=== PATIENT | male | born 1950 | race Caucasian/White ===

== ENCOUNTER → 2017-07-10 15:00 | Outpatient (CLI) | payer MEDICARE | END | disposition home or self-care (01) | LOC: D.RAD 15:00 | DX: J45.909 Unspecified asthma, uncomplicated (principal) ==

== ENCOUNTER 2017-11-25 15:13 | Emergency (ER) | payer MEDICARE ==
[2017-11-25 16:09] LABS: BASOPHILS 0.2 % (0-2); EOSINOPHILS 3.1 % (0-7); HEMATOCRIT 45.8 % (42.0-54.0); HEMOGLOBIN 15.8 g/dL (13.5-17.5); IMMATURE GRANULOCYTES 0.3 % (0-5); LYMPHOCYTES 23.1 % (15-50); MCH 32.4 pg (26.0-34.0); MCHC 34.5 g/dL (31.0-37.0); MCV 93.9 fL (80.0-100.0); MEAN PLATELET VOLUME 11.9 fL (7.4-10.4); MONOCYTES 12.9 % (2-11); NEUTROPHILS 60.4 % (40-80); PLATELET COUNT 281 10x3/uL (130-400); RBC 4.88 10x6/uL (4.20-6.10); RDW 13.1 % (11.5-14.5); WBC 11.4 10x3/uL (4.8-10.8)
[2017-11-25 17:38] LABS: ALBUMIN 3.8 g/dL (3.4-5.0); ALKALINE PHOSPHATASE 58 U/L (46-116); ALT (SGPT) 42 U/L (10-68); BILIRUBIN - TOTAL 0.47 mg/dL (0.2-1.3); CALC OSMOLALITY 282 mosm/kg (275-300); CALCIUM 8.8 mg/dL (8.5-10.1); CARBON DIOXIDE 27.2 mmol/L (21.0-32.0); CHLORIDE - SERUM 103 mmol/L (98-107); CREATININE - SERUM 0.9 mg/dL (0.6-1.3); GLUCOSE 88 mg/dL (74-106); POTASSIUM - SERUM 3.5 mmol/L (3.5-5.1); SODIUM 142 mmol/L (136-145); UREA NITROGEN 14 mg/dL (7-18); eGFR NON AFRICAN AMERICAN 90 mL/min (90-120)
[2017-11-25 17:49] LABS: CREATINE KINASE 180 UL (21-232)
[2017-11-25 17:50] LABS: TROPONIN-I < 0.017 ng/mL (0.000-0.060)
== END 2017-11-25 18:17 | disposition home or self-care (01) ==
LOC: D.ER 15:13
PROVIDERS: Family Medicine
DX: R07.89 Other chest pain (principal); I10 Essential (primary) hypertension

== ENCOUNTER → 2019-12-23 11:06 | Outpatient (CLI) | payer MEDICARE | END | disposition home or self-care (01) | LOC: D.HCCECHO 11:06 | PROVIDERS: ATTEND Internal Medicine Cardiovascular Disease | DX: R06.00 Dyspnea, unspecified (principal); R07.9 Chest pain, unspecified ==

== ENCOUNTER → 2020-01-11 08:11 | Outpatient (CLI) | payer MEDICARE | END | disposition home or self-care (01) | LOC: D.HCCARDIO 08:11 | PROVIDERS: ATTEND Internal Medicine Cardiovascular Disease | DX: R07.9 Chest pain, unspecified (principal) ==

== ENCOUNTER 2020-02-01 06:03 | Outpatient (CLI) | payer MEDICARE ==
[~2020-02-01] VITALS: Ht 177.8 cm; Wt 75.8 kg
--- NOTE | ~2020-02-01 | HEMODYNAMI ---
PATIENT:MANI CAIN MEDICAL RECORD: [id number] : 52 LOCATION:[facility] ADMISSION DATE: 02/01/20 Generatedon:02/01/20209:07 Patient name: MANI CAIN Patient #: [id number] SSN: DO B: 1950 Date of study: 02/01/2020 Page: Of Hemodynamic Procedure Report Patient Data Patient Demographics Procedure consent was obtained First Name: MANI Gender: Male Last Name: PAYTON : 1950 Middle Initial: D Age: 69 year(s) Patient #: [id number] Race: Unknown Additional ID: [id number] Contact details [address]: [address] [place] [address] State: [place] City: [place] Zip code: [address] Past Medical History Performed procedures and imaging results Date Procedure Procedure Results Comments Stress testing Positive->Intermediate with SPECT MPI risk Allergies Allergen Reaction Date Comments Reported Other allergy 02/01/2020 [facility] Admission Admission Data Admission Date: 02/01/2020 Admission Time: 6:03 Height (in.): 72 BSA: 1.98 (m2) Height (cm.): 182.88 BMI: 22.72 (kg/m2) Weight (lbs.): 167.55 Weight (kg.): 76 Lab Results Lab Result Date: 02/01/2020 Lab Result Time: 0:00 Biochemistry Name Units Result Min Max BUN mg/dl 14 --(--*-)-- 7 18 Creatinine mg/dl 1 --(--*-)-- 0.6 1.3 eGFR ml/min 79.17953 *-(----)-- 90 120 NONAFRICAN CBC Name Units Result Min Max Hematocrit % 49.8 --(--*-)-- 42 54 Hemoglobin g/dl 16.9 --(---*)-- 13.5 17.5 Procedure Procedure Types Cath Procedure Diagnostic Procedure LHC [facility] w/Coronaries Sedation Charges Moderate Sedation up to 45 minutes PCI Procedure Coronary Stent Coronary Stent Initial Hemochron ACT Test Procedure Description Procedure Date Procedure Date: 02/01/2020 Procedure Start Time: 8:21 Procedure End Time: 9:04 Procedure Staff Name Function Bill Cordova MD Performing Physician Michelle Norwood RT Monitor Sarika Thompson RT Scrub Jennifer Castorena RN Nurse Procedure Data Cath Procedure Fluoroscopy Diagnostic fluoroscopy Total fluoroscopy Time: 9.3 time: 9.3 min min Diagnostic fluoroscopy Total fluoroscopy dose: dose: 1016 mGy 1016 mGy Contrast Material Contrast Material Type Amount (ml) Isovue 300 137 Entry Location Entry Primary Successful Side Size Upsize Upsize Entry Closure Succes sful Closure Location (Fr) 1 (Fr) 2 (Fr) Remarks Device Remarks Femoral Right 5 Fr 6 Fr Exoseal artery Short Estimated blood loss: 10 ml Diagnostic catheters Device Type Used For End Catheter Placement MULTIPACK JL 4.0 5Fr Procedure catheter MULTIPACK 3DRC 5Fr Procedure catheter MULTIPACK Pigtail 5 Fr Procedure catheter Procedure Complications No complications Procedure Medications Medication Administration Route Dosage 0.9% NaCl I.V. 100 ml/hr Oxygen etCO2 Nasal cannula 2 l/min Lidocaine 2% added to field 20 Heparin Flush Bag added to field 2 bags (1000units/500ml NS) Versed I.V. 2 mg Fentanyl I.V. 50 mcg Versed I.V. 2 mg Fentanyl I.V. 50 mcg Nitroglycerin IC/IA I.C. 100 mcg Heparin Bolus I.V. 7500 units Versed I.V. 2 mg Nitroglycerin IC/IA I.C. 100 mcg Hemodynamics Rest BSA: 1.98 (m2) HGB: 16.9 (g/dl) O2 Consumption: Estimated: 240.25 (ml/min) O2 Co nsumption indexed: Estimated:121.34 (ml/min/m) Heart Rate: 84 (bpm) Pressure Samples Time Site Value (mmHg) Purpose Heart Use Rate(bpm) 8:30 LV 125/-7,6 Snapshot 78 8:31 AO 130/55(86) Pullback 80 8:31 LV 126/-9,23 Pullback 80 Gradients Valve Time Site 1 Site 2 Mean SEP/DFP Peak To Heart Use (mmHg) (sec/min) Peak Rate (mmHg) (bpm) Aortic 8:31 LV AO 0 18 0 80 126/-9,23 130/55(86) Calculations Valve P-P Mean Valve Index Valve Source Name Gradient Area Flow (cm2) Aortic 0 0 0 0 Snapshots Pre Cath Intra NCS Post Cath Vital Signs Time Heart Resp SPO2 etCO2 NIBP (mmHg) Rhythm Pain Sedation Rate (ipm) (%) (mmHg) Status Level (bpm) 8:03:21 81 15 99 19.5 164/88(126) NSR 0 (11) 10(A) , No pain 8:07:38 83 22 98 12.7 131/77(111) NSR 0 (11) 10(A) , No pain 8:11:52 76 29 97 18.8 131/75(98) NSR 0 (11) 10(A) , No pain 8:16:06 76 18 98 24.8 122/77(101) NSR 0 (11) 10(A) , No pain 8:20:19 78 11 98 13.5 119/71(95) NSR 0 (11) 10(A) , No pain 8:24:27 71 14 97 10.5 125/71(100) NSR 0 (11) 10(A) , No pain 8:28:41 79 12 98 14 124/76(100) NSR 0 (11) 9(A) , No pain 8:32:51 76 16 97 11.3 111/70(97) NSR 0 (11) 9(A) , No pain 8:36:59 75 16 98 20 119/73(97) NSR 0 (11) 9(A) , No pain 8:41:11 77 16 99 30.1 122/59(83) NSR 0 (11) 9(A) , No pain 8:45:27 76 14 97 30.8 111/59(76) NSR 0 (11) 10(A) , No pain 8:49:37 76 16 99 28.6 113/68(94) NSR 0 (11) 10(A) , No pain 8:53:47 73 19 100 10.5 108/69(94) NSR 0 (11) 9(A) , No pain 8:57:57 75 14 100 25.5 97/63(82) NSR 0 (11) 10(A) , No pain 9:02:00 78 12 99 33.1 112/71(94) NSR 0 (11) 10(A) , No pain Medications Time Medication Route Dose Verified Delivered Reason Notes Effectiveness by by 8:02:16 0.9% NaCl I.V. 100 Bill Jennifer used for ml/hr Art Castorena special procedure technologist 8:02:22 Oxygen etCO2 2 Bill Jennifer used for Nasal l/min Art Castorena procedure cannula RN 8:02:27 Lidocaine 2% added 20ml Bill Bill for local to vial Art Cordova MD anesthetic field 8:02:31 Heparin Flush added 2 Bill Bill used for Bag to bags Art Cordova MD procedure (1000units/500ml field NS) 8:17:26 Versed I.V. 2 mg Bill Jennifer for sedation Art Castorena RN 8:17:52 Fentanyl I.V. 50 Bill Jennifer for sedation mcg Art Castorena RN 8:25:00 Versed I.V. 2 mg Bill Jennifer for sedation Art Castorena RN 8:25:06 Fentanyl I.V. 50 Bill Jennifer for sedation mcg Art Castorena RN 8:36:12 Heparin Bolus I.V. 7500 Bill Jennifer for verifi ed units Art Castorena anticoagulation with Dr. YOHANNES Cordova 8:41:41 Nitroglycerin I.C. 100 Bill Bill for IC/IA mcg Art Cordova MD vasodilation 8:46:19 Versed I.V. 2 mg Bill Jennifer for sedation Art Castorena RN 8:57:08 Nitroglycerin I.C. 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 7:37:30 Time tracking: Regular hours (M-F 7:00 - 5:00) 7:37:37 Plan of Care:Hemodynamics will remain stable., Cardiac rhythm will remain stable., Comfort level will be maintained., Respiratory function will remain adequate., Patient/ family verbilizes understanding of procedure., Procedure tolerated without complication., Recovers from procedure without complications.. 7:45:19 H&P Date Dictated: 01/20/2020 Within 30 days and on chart., H&P Addendum completed by physician on day of procedure. (MUST COMPLETE FOR ALL OUTPATIENTS). 7:45:34 Patient allergic to Other allergyLEVAQUIN 7:45:57 Patient Weight : 167.55 lbs 7:46:36 Patient Height : 72 inches 7:47:00 Sarika MEYER(R) (CV) sent for patient. Start room use. 7:50:30 Stress Test: yes; abnormal ANTERIOR AND LATERAL 7:55:35 Patient received from Pre/Post Procedure Room to CCL 1 Alert and oriented. Tansferred to table in Supine position. 7:55:36 Warm blankets applied, and karlo hugger turned on for patient comfort. 7:55:36 Correct patient and procedure confirmed by team. 7:55:37 ECG and BP/O2 sat monitors applied to patient. 8:02:08 Vital chart was started 8:02:16 0.9% NaCl 100 ml/hr I.V. was administered by Jennifer Castorena RN; used for procedure; Verbal order read back and verified. 8:02:22 Oxygen 2 l/min etCO2 Nasal cannula was administered by Jennifer Castorena RN; used for procedure; Verbal order read back and verified. 8:02:27 Lidocaine 2% 20ml vial added to field was administered by Bill Cordova MD; for local anesthetic; Verbal order read back and verified. 8:02:31 Heparin Flush Bag (1000units/500ml NS) 2 bags added to field was administered by Bill Cordova MD; used for procedure; Verbal order read back and verified. 8:03:49 Baseline sample Acquired. 8:03:52 Rhythm: sinus rhythm 8:03:54 Full Disclosure recording started 8:03:55 Pre-procedure instructions explained to patient. 8:03:55 Pre-op teaching completed and patient verbalized understanding. 8:03:57 Family in waiting room. 8:04:01 Patient NPO since Breakfast. 8:09:51 Is the patient allergic to Iodine/contrast media? No. 8:10:02 Is patient on blood thinner?No 8:10:03 Patient diabetic? No. 8:10:57 Previous problem with sedation/anesthesia? No ? 8:10:59 Snore? Yes 8:11:00 Sleep apnea? No 8:11:01 Deviated septum? No 8:11:02 Opens mouth fully? Yes 8:11:03 Sticks out tongue? Yes 8:11:09 Airway obstruction? Yes ASTHMA 8:11:11 Dentures? No ? 8:11:14 Pre procedure: right dorsailis pedis pulse 1+ Palpable, but thready & weak; easily obliterated 8:11:16 Modified Humza's test Ulnar > 7 seconds. 8:11:23 IV patent on arrival in left hand with 0.9% NaCl at O. 8:12:15 Lab Result : BUN 14 mg/dl 8:12:15 Lab Result : Creatinine 1 mg/dl 8:12:15 Lab Result : eGFR NONAFRICAN 79.12555 ml/min 8:12:15 Lab Result : Hemoglobin 16.9 g/dl 8:12:15 Lab Result : Hematocrit 49.8 % 8:12:18 Lab results completed and on chart. 8:12:21 Right groin area was prepped with chlora-prep and draped in sterile fashion 8:12:21 Alarms reviewed by R. N. 8:12:22 Sharps counted by scrub and verified by R.N. 8:12:30 FAILED ALLENS TEST 8:12:32 Use device set Femoral Dx 8:12:33 ACIST Syringe (03625) opened to sterile field. 8:12:34 Bag Decanter (2002S) opened to sterile field. 8:12:36 ACIST Hand Control (14102) opened to sterile field. 8:12:36 ACIST Manifold (26485) opened to sterile field. 8:12:37 Tegaderm 4 x 4 (1626W) opened to sterile field. 8:12:38 Medline Cath Pack ([id number]) opened to sterile field. 8:12:39 DIAGNOSTIC Multipack 5Fr catheter set (MR3456) opened to sterile field. 8:12:40 SHEATH 5FR Graham (FAS318) opened to sterile field. 8:12:40 EMERALD Guide Wire (322-703) opened to sterile field. 8:16:08 --------ALL STOP TIME OUT------ 8:16:09 Final Timeout: patient, procedure, and site verified with staff and physician. All members of the team are in agreement. 8:16:10 Right groin site verified by team. 8:16:13 Fire Safety Assessment: A--An alcohol-based skin anteseptic being used preoperatively., C--Open oxygen or nitrous oxide is being used., D--An ESU, laser, or fiber-optic light is being used. 8:16:15 Physical assessment completed. ASA score P 2 - A patient with mild systemic disease as per Bill Cordova MD. 8:16:20 2) 60-89 Mildly reduced kidney function, and other findings (as for stage 1) point to kidney disease. 8:16:25 Maximum allowable contrast dose (3.7 X eGFR X 0.75)219 ml. 8:16:28 Sedation plan: IV Moderate Sedation Medication:Versed, Fentanyl 8:16:52 Zero performed for pressure channel P1 8:17:26 Versed 2 mg I.V. was administered by Jennifer Castorena RN; for sedation; Verbal order read back and verified. 8:17:52 Fentanyl 50 mcg I.V. was administered by Jennifer Castorena RN; for sedation; Verbal order read back and verified. 8:21:21 Procedure started. 8:21:59 Local anesthetic to right femoral artery with Lidocaine 2% by Bill Cordova MD.INITIAL ACCESS ONLY 8:23:16 A 5 Fr sheath was inserted into the Right Femoral artery 8:23:27 A MULTIPACK JL 4.0 5Fr catheter was advanced over the wire and used for Procedure. 8:25:00 Versed 2 mg I.V. was administered by Jennifer Castorena RN; for sedation; Verbal order read back and verified. 8:25:06 Fentanyl 50 mcg I.V. was administered by Jennifer Castorena RN; for sedation; Verbal order read back and verified. 8:25:41 LCA angiography performed. 8:26:04 Catheter exchanged over wire. 8:27:05 A MULTIPACK 3DRC 5Fr catheter was advanced over the wire and used for Procedure. 8:28:57 RCA angiography performed. 8:28:58 Catheter exchanged over wire. 8:29:00 ACCDominant side:Left 8:29:28 A MULTIPACK Pigtail 5 Fr catheter was advanced over the wire and used for Procedure. 8:29:47 LV gram done using BLANCAS 8:29:51 Injector settings: Ml/sec: 10, Volume: 20, 8:30:40 LV hemodynamics recorded. 8:31:03 EF : 60 % 8:31:43 Proceeding to intervention. 8:31:50 Pre PCI Site: [place] Diag1 has 90% stenosis. 8:32:13 SHEATH 6FR Graham (GMQ875) opened to sterile field. 8:32:14 GUIDE 6FR XBLAD 3.5 catheter ([id number]) opened to sterile field. 8:32:14 TUBING High Pressure Extension Tubing (Art) ([id number]) opened to sterile field. 8:32:15 BMW 300cm Straight [place] 2 wire ([id number]) opened to sterile field. 8:32:15 INFLATOR Merit BasixCompak (JQ5077) opened to sterile field. 8:33:09 Sheath upsized to a 6 Fr Short. 8:34:12 6 Fr XBLAD 3.5 guide catheter was inserted over the wire 8:36:12 Heparin Bolus 7500 units I.V. was administered by Jennifer Castorena RN; for anticoagulation; verified with Dr. Cordova Verbal order read back and verified. 8:38:54 BMW 300 wire advanced. 8:40:32 Wire advanced across lesion. 8:41:41 Nitroglycerin IC/IA 100 mcg I.C. was administered by Bill Cordova MD; for vasodilation; Verbal order read back and verified. 8:46:19 Versed 2 mg I.V. was administered by Jennifer Castorena RN; for sedation; Verbal order read back and verified. 8:48:19 The JOLYNN OTW 2.25 x 12 stent ([id number]) was advanced then removed because of failure to cross lesion 8:51:46 Inflate balloon Inflation number: 1 A EMERGE OTW 2.0 x 12 balloon ([id number]) was prepped and advanced across the 1st Diag , then inflated to 11 NETTA for 0:00 (min:sec) . 8:53:56 Balloon removed over the wire. 8:56:14 Place stent Inflation Number: 2 A JOLYNN OTW 2.25 x 12 stent ([id number]) was prepped and advanced across the 1st Diag . The stent was deployed at 11 NETTA for 0:00 (min:sec) . 8:56:19 Stent catheter was removed intact over wire. 8:57:08 Nitroglycerin IC/IA 100 mcg I.C. was administered by Jennifer Castorena RN; for vasodilation; Verbal order read back and verified. 8:57:39 Wire removed. 8:57:40 Guide catheter removed. 8:57:53 EXOSEAL 6Fr (EX600) opened to sterile field. 8:59:36 Sheath removed intact; hemostasis achieved with Exoseal to the Right Femoral artery. 9:00:03 Procedure ended.(Physican Out) 9:00:17 Fluoroscopy time 09.30 minutes. 9:00:22 Fluoroscopy dose: 1016 mGy 9:00:22 Flurop Dose total: 1016 9:00:28 Dose Area Product 88876 mGy/cm. 9:00:31 Contrast amount:Isovue 300 137ml. 9:00:34 Maximum allowable dose exceeded? No. 9:00:35 Sharps counted by scrub and verified by R.N. 9:00:38 Post-op/insertion site Right Femoral artery dressed using a 4 x 4 and Tegaderm. 9:00:40 Post-procedure physical assessment completed. ASA score P 2 - A patient with mild systemic disease as per Bill Cordova MD. 9:00:43 Post procedure rhythm: sinus rhythm 9:02:40 ACT drawn and resulted at >400- out of range seconds. (normal therapeutic range 180-240 seconds). 9:03:17 Estimated blood loss: 10 ml 9:03:20 Post procedure instruction explained to patient.Patient verbalizes understanding. 9:03:20 Patient needs reinforcement of post procedure teaching. 9:03:57 Procedure type changed to Cath procedure, Diagnostic procedure, LHC, [facility] w/Coronaries, Sedation Charges, Moderate Sedation up to 45 minutes, PCI procedure, Coronary Stent, Coronary Stent Initial, Hemochron ACT Test 9:04:29 Procedure and supply charges have been captured, reviewed, submitted and are correct. 9:04:31 Procedure Complication : No complications 9:04:34 Vital chart was stopped 9:04:35 [facility] Findings: MVD- PCI performed (see procedure note) 9:04:36 Operative report dictated upon procedure completion. 9:04:37 See physician's report for complete and final results. 9:04:38 Report given to Pre/Post Procedure Room. 9:04:41 Patient transfered to Pre/Post Procedure Room with Bed. 9:04:44 Procedure ended. 9:04:44 Full Disclosure recording stopped 9:04:50 End room use (Document Last) 9:06:24 End room use (Document Last) 9:07:03 End room use (Document Last) Intervention Summary Intervention Notes Time ActionType Lesion and Equipment Action# Pressure Duration Attributes Used 8:48:19 Discard 1st Diag JOLYNN OTW 2.25 Stent x 12 stent ([id number]) 8:51:46 Inflate 1st Diag EMERGE OTW 1 11 00:00 balloon 2.0 x 12 balloon ([id number]) 8:56:14 Place stent 1st Diag JOLYNN OTW 2.25 2 11 00:00 x 12 stent ([id number]) Device Usage Item Name Manufacture Quantity Catalog Number Hospital Part Current Min imal Lot# / Charge Number Stock Stock Serial# Code ACIST Syringe Acist 1 39315 877360 313600 835760 20 (99348) Medical Systems Inc Bag Decanter Microtek 1 2001S 292258 07664 576738 5 (2001S) Medical Inc. ACIST Hand Acist 1 76250 713744 705975 037083 5 Control Medical (03857) Systems Inc ACIST Acist 1 24245 489592 800655 070497 5 Manifold Medical (24692) Systems Inc Tegaderm 4 x 3M 1 1626W 657832 219024 315073 5 4 (1626W) Medline Cath Medline 1 [id number] 476211 23207 887622 5 Pack ([id number]) DIAGNOSTIC Cardinal 1 TB6747 223546 85026 719604 30 Multipack 5Fr Health catheter set (EX5945) SHEATH 5FR Terumo 1 XRS808 725793 844877 687650 5 Graham (VWJ954) EMERALD Guide Cardinal 1 502-455 086530 301428 376716 5 Wire Health (502-455) MULTIPACK JL Cardinal 1 601407 5 4.0 5Fr Health catheter MULTIPACK Cardinal 1 704985 5 3DRC 5Fr Health catheter MULTIPACK Cardinal 1 712643 5 Pigtail 5 Fr Health catheter SHEATH 6FR Terumo 1 XPP098 313618 625698 045328 40 Graham (FQF713) GUIDE 6FR Cardinal 1 [id number] 251650 359998 587123 10 XBLAD 3.5 Health catheter (30370173) TUBING High Merit 1 [id number] 980182 21477 429653 10 Pressure Medical Extension Tubing (Cordova) (HA6046G) BMW 300cm Long 1 6212087 633436 355610 522713 5 Straight Vascular [place] 2 wire (0991003) INFLATOR Merit 1 GT1222 854036 329487 192741 15 [facility] Medical BasixCompak (MS7627) JOLYNN OTW 2.25 Medtronic 1 [id number] 328969 20025 959305 5 [id number] x 12 stent ([id number]) EMERGE OTW [place] 1 [id number] 184959 601386 128666 5 [id number] 2.0 x 12 Scientific balloon ([id number]) EXOSEAL 6Fr Cardinal 1 EX600 116468 136524 027833 10 (EX600) Health Signature Audit [place] Stage Time Signature Unsigned Intra-Procedure 02/01/2020 Michelle Norwood 9:06:24 AM RT(R) Intra-Procedure 02/01/2020 Jennifer Castorena 9:07:03 AM RN Intra-Procedure 02/01/2020 Bill Cordova MD 9:07:35 AM [facility] [address] [place] [address]
[2020-02-01] MEDS ORDERED: ZETIA10 MG PO (06:26)
[2020-02-01] MEDS ORDERED: TRIAMTERENE-HC1 EAC3 PO (06:27)
[2020-02-01] MEDS ORDERED: PROAIR HFA8.5 G1 (06:27)
[2020-02-01] MEDS ORDERED: NEXIUM20 MG PO (06:27)
[2020-02-01] MEDS ORDERED: COZAAR25 MG PO (06:27)
[2020-02-01] MEDS ORDERED: MELATONIN10 M1 PO (06:28)
[2020-02-01] MEDS ORDERED: NICORETTE2 MG PO (06:29)
[2020-02-01] MEDS ORDERED: CO Q-10200 MG PO (06:29)
[2020-02-01] MEDS ORDERED: GLUCOSAMINE HC500 MG PO (06:30)
[2020-02-01] MEDS ORDERED: MAGNESIUM OXID250 MG PO (06:30)
[2020-02-01] MEDS ORDERED: VITAMIN B-12500 MCG PO (06:30)
[2020-02-01] MEDS ORDERED: VITAMIN E100 UNIT PO (06:31)
[2020-02-01] MEDS ORDERED: ZINC GLUCONATE50 MG PO (06:31)
[2020-02-01] MEDS ORDERED: KRILL OIL 1,001 EAC1 PO (06:31)
[2020-02-01] MEDS ORDERED: SAW PALMETTO450 MG PO (06:32)
[2020-02-01 06:48] VITALS: BP 181/96; Ht 177.8 cm; Wt 75.8 kg
[2020-02-01 07:36] LABS: ALT (SGPT) 42 U/L (10-68); CALC OSMOLALITY 266 mosm/kg (275-300); CALCIUM 9.1 mg/dL (8.5-10.1); CARBON DIOXIDE 26.4 mmol/L (21.0-32.0); CHLORIDE - SERUM 95 mmol/L (98-107); CHOL - HDL RATIO 4.2 ratio (2.3-4.9); CHOLESTEROL, TOTAL 206 mg/dL (0-200); GLUCOSE 105 mg/dL (74-106); HDL CHOLESTEROL 49 mg/dL (32-96); LDL CHOLESTEROL 137 mg/dL (0-100); LDL-HDL RATIO 2.8 ratio (1.5-3.5); POTASSIUM - SERUM 3.2 mmol/L (3.5-5.1); SODIUM 133 mmol/L (136-145); TRIGLYCERIDE 103 mg/dL (30-200); UREA NITROGEN 14 mg/dL (7-18); eGFR NON AFRICAN AMERICAN 79 mL/min (90-120)
[2020-02-01 08:09] LABS: BASOPHILS 0.2 % (0-2); EOSINOPHILS 0.8 % (0-7); HEMATOCRIT 49.8 % (42.0-54.0); HEMOGLOBIN 16.9 g/dL (13.5-17.5); IMMATURE GRANULOCYTES 0.2 % (0-5); LYMPHOCYTES 17.6 % (15-50); MCH 31.6 pg (26.0-34.0); MCHC 33.9 g/dL (31.0-37.0); MCV 93.1 fL (80.0-100.0); MEAN PLATELET VOLUME 10.6 fL (7.4-10.4); MONOCYTES 13.2 % (2-11); PLATELET COUNT 233 10x3/uL (130-400); RBC 5.35 10x6/uL (4.20-6.10); RDW 13.3 % (11.5-14.5); WBC 8.8 10x3/uL (4.8-10.8)
[2020-02-01] MEDS ORDERED: BAYER CHEWABLE81 MG PO (09:15)
[2020-02-01] MEDS ORDERED: PLAVIX75 MG PO (09:15)
--- NOTE | 2020-02-01 09:15 | NUR ---
PT RECEIVED BACK TO ROOM VIA STRETCHER FROM [facility]PER FOR RECOVERY. PT AWAKE BUT DROWSY, DENIES PAIN OR DISCOMFORT. IV PATENT INFUSING VIA ORDERS TO R ARM. PT PLACED ON CARDIAC MONITORS AND O2 VIA NC AT 2L. R GROIN SOFT, DRESSING CDI NO S/S HEMATOMA OR BLEEDING NOTED. LEG PINK AND WARM, PEDAL PULSES PALPABLE. CALL LIGHT IN REACH, AT BEDSIDE.
--- NOTE | 2020-02-01 09:47 | NUR ---
PT RESTING COMFORTABLY. VSS. R GROIN SOFT, DRESSING REMAINS CDI NO S/S HEMATOMA OR BLEEDING. PEDAL PULSES PALPALBE, LEG PINK AND WARM. CALL LIGHT IN REACH, AT BS. PT TOLERATED PUDDING AND PO FLUIDS W/O NAUSEA.
--- NOTE | 2020-02-01 10:30 | NUR ---
PT RESTING W EYES CLOSED, DENIES PAIN OR DISCOMFORT. VSS. R GROIN SOFT, DRESSING CDI NO S/S HEMATOMA NOTED. CALL LIGHT IN REACH.
--- NOTE | 2020-02-01 11:02 | NUR ---
DR RAMAN AT , NO NEW ORDERS RECEIVED. PROCEDURE RESULTS AND PLAN OF CARE DISCUSSED W PT AND . R GROIN SOFT, DRESSING CDI NO S/S HEMATOMA NOTED. CALL LIGHT IN REACH
--- NOTE | 2020-02-01 12:00 | NUR ---
R GROIN SOFT, DRESSING CDI NO S/S HEMATOMA OR BLEEDING. HOB ELEVATED, SANDWICH AND DRINK SERVED. VSS. CALL LIGHT IN REACH, PT DENIES PAIN OR OTHER NEEDS AT THIS TIME.
--- NOTE | 2020-02-01 12:59 | NUR ---
DISCHARGE INSTRUCTIONS REVIEWED W PT AND , BOTH VERBALIZED UNDERSTANDING. IV REMOVED W CATH INTACT, MONITORS REMOVED. GROIN SOFT, DRESSING REMAINS CDI NO S/S HEMATOMA OR BLEEDING. PT UP TO DRESS FOR DISCHARGE
--- NOTE | 2020-02-01 13:10 | NUR ---
1300 PT AMBULATED TO BR, VOIDING W/O DIFFICULITY. PT THEN DISCHARGED VIA WC TO WAITING IN PRIVATE VEHICLE. PT HAD ALL BELONGINGS
== END 2020-02-01 13:10 | disposition home or self-care (01) ==
LOC: D.CATH 06:03
PROVIDERS: ATTEND Internal Medicine Cardiovascular Disease
DX: I25.119 Atherosclerotic heart disease of native coronary artery with unspecified angina pectoris (principal); R94.30 Abnormal result of cardiovascular function study, unspecified; R07.9 Chest pain, unspecified
CPT/HCPCS: 93458; C9600

== ENCOUNTER 2020-06-17 14:01 | Observation (INO) | payer MEDICARE ==
[~2020-06-17] VITALS: Ht 177.8 cm; Wt 78.2 kg
[~2020-06-17 14:01] MED LIST: BAYER CHEWABLE81 MG PO; CO Q-10200 MG PO; COZAAR25 MG PO; GLUCOSAMINE HC500 MG PO; KRILL OIL 1,001 EAC1 PO; MAGNESIUM OXID250 MG PO; MELATONIN10 M1 PO; NEXIUM20 MG PO; NICORETTE2 MG PO; PLAVIX75 MG PO; PROAIR HFA8.5 G1 INH; SAW PALMETTO450 MG PO; TRIAMTERENE-HC1 EAC3 PO; VITAMIN B-12500 MCG PO; VITAMIN E100 UNIT PO; ZETIA10 MG PO; ZINC GLUCONATE50 MG PO
[2020-06-17 14:04] VITALS: Ht 177.8 cm; Wt 78.2 kg
[2020-06-17 14:39] LABS: BASOPHILS 0.2 % (0-2); HEMOGLOBIN 15.1 g/dL (13.5-17.5); IMMATURE GRANULOCYTES 0.1 % (0-5); LYMPHOCYTES 10.2 % (15-50); MCH 31.3 pg (26.0-34.0); MCHC 34.3 g/dL (31.0-37.0); MCV 91.1 fL (80.0-100.0); MEAN PLATELET VOLUME 9.9 fL (7.4-10.4); MONOCYTES 11.2 % (2-11); NEUTROPHILS 77.3 % (40-80); PLATELET COUNT 218 10x3/uL (130-400); RBC 4.83 10x6/uL (4.20-6.10); RDW 13.4 % (11.5-14.5); WBC 10.3 10x3/uL (4.8-10.8)
[2020-06-17 14:50] LABS: APTT 28.2 SECONDS (22.8-39.4); INR 1.01 (0.85-1.17); PROTIME 13.2 SECONDS (11.6-15.0)
[2020-06-17 14:52] LABS: CALC OSMOLALITY 271 mosm/kg (275-300); CALCIUM 8.9 mg/dL (8.5-10.1); CARBON DIOXIDE 26.5 mmol/L (21.0-32.0); CHLORIDE - SERUM 99 mmol/L (98-107); CREATININE - SERUM 0.9 mg/dL (0.6-1.3); GLUCOSE 106 mg/dL (74-106); POTASSIUM - SERUM 3.4 mmol/L (3.5-5.1); SODIUM 136 mmol/L (136-145); UREA NITROGEN 13 mg/dL (7-18); eGFR NON AFRICAN AMERICAN 89 mL/min (90-120)
[2020-06-17 15:09] LABS: ALBUMIN 3.8 g/dL (3.4-5.0); ALKALINE PHOSPHATASE 63 U/L (30-120); ALT (SGPT) 31 U/L (10-68); BILIRUBIN - TOTAL 0.45 mg/dL (0.2-1.3); CKMB 1.5 U/L (0.0-3.6); CREATINE KINASE 130 UL (21-232); PROTEIN - SERUM 7.5 g/dL (6.4-8.2); TROPONIN-I < 0.017 ng/mL (0.000-0.060)
[2020-06-17 18:17] LABS: PLT FUNCT.(P2Y12) PLAVIX 125 PRU (194-418)
[2020-06-17 22:14] LABS: CKMB 0.9 U/L (0.0-3.6); CREATINE KINASE 105 UL (21-232)
[2020-06-17 22:15] LABS: TROPONIN-I < 0.017 ng/mL (0.000-0.060)
[2020-06-18 02:28] VITALS: BP 153/83
[2020-06-18 04:16] LABS: BASOPHILS 0.3 % (0-2); EOSINOPHILS 4.8 % (0-7); HEMATOCRIT 41.6 % (42.0-54.0); HEMOGLOBIN 14.2 g/dL (13.5-17.5); IMMATURE GRANULOCYTES 0.1 % (0-5); LYMPHOCYTES 23.9 % (15-50); MCH 31.4 pg (26.0-34.0); MCHC 34.1 g/dL (31.0-37.0); MEAN PLATELET VOLUME 9.7 fL (7.4-10.4); MONOCYTES 15.3 % (2-11); NEUTROPHILS 55.6 % (40-80); PLATELET COUNT 201 10x3/uL (130-400); RBC 4.52 10x6/uL (4.20-6.10); RDW 13.6 % (11.5-14.5)
[2020-06-18 04:17] LABS: WBC 6.9 10x3/uL (4.8-10.8)
[2020-06-18 04:21] LABS: PLT FUNCT.(P2Y12) PLAVIX 153 PRU (194-418)
[2020-06-18 04:25] LABS: INR 1.07 (0.85-1.17); PROTIME 13.8 SECONDS (11.6-15.0)
[2020-06-18 04:40] LABS: CALC OSMOLALITY 275 mosm/kg (275-300); CALCIUM 8.6 mg/dL (8.5-10.1); CARBON DIOXIDE 27.4 mmol/L (21.0-32.0); CHLORIDE - SERUM 103 mmol/L (98-107); CKMB 1.1 U/L (0.0-3.6); CREATINE KINASE 137 UL (21-232); CREATININE - SERUM 0.8 mg/dL (0.6-1.3); GLUCOSE 89 mg/dL (74-106); MAGNESIUM - SERUM 2.2 mg/dL (1.8-2.4); PHOSPHOROUS 3.3 mg/dL (2.5-4.9); POTASSIUM - SERUM 3.3 mmol/L (3.5-5.1); PRO BNP 151 pg/mL (0-125); SODIUM 139 mmol/L (136-145); UREA NITROGEN 11 mg/dL (7-18); eGFR NON AFRICAN AMERICAN > 90 mL/min (90-120)
[2020-06-18 04:46] LABS: TROPONIN-I < 0.017 ng/mL (0.000-0.060)
[2020-06-18 08:30] VITALS: BP 145/61
--- NOTE | 2020-06-18 08:31 | NUR ---
PT RESTING QUIETLY IN BED, ALERT, ORIENTED, FOLLOWS COMMANDS, NO COMPLAINTS, DENIES PAIN LUNG SOUNDS CLEAR, RESP. UNLABORED SKIN WARM/DRY/COLOR WNL, NO EDEMA NOTED, HEART MONITOR=SR WITH OCCASIONAL PVC,RADIAL/PEDAL PULSES PRESENT DENIES CHEST PAIN IV LEFT WRIST W/O SIGNS OF INFECTION/INFILTRATION ABDOMEN SOFT, BS+, NONTENDER
--- NOTE | 2020-06-18 08:56 | NUR ---
PT DECLINES ALL MEDICATIONS AT THIS TIME-STATES WANTS TO WAIT FOR DISCHARGE AND TAKE MEDS AT HOME YASMIN SHEFFIELD, ASSISTING PRIMARY NURSE
--- NOTE | 2020-06-18 09:05 | NUR ---
DR. CORLEY IN TO TALK WITH PT
[2020-06-18] MEDS ORDERED: NITRO-DUR0.1 MG TRANSDERM (11:07)
[2020-06-18 11:19] VITALS: BP 155/74
--- NOTE | 2020-06-18 11:20 | NUR ---
EAGER FOR DISCHARGE-CALL WAS PLACED TO ATTENDING FOR DC ORDERS-PA WILL COME TO DC-PT AND GIVEN UPDATE DENIES PAIN
--- NOTE | 2020-06-18 12:10 | NUR ---
1120 NOTE BY THIS RN-NOT Frances HIGGINS RN AWAITING DC INSTRUCTIONS Bj PIPER RN, ASSISTING PRIMARY NURSE
[2020-06-18 12:42] VITALS: BP 132/76
[2020-06-19] MEDS ORDERED: ISOSORBIDE MONO30 M1 PO (09:10)
== END 2020-06-18 12:30 | disposition home or self-care (01) ==
LOC: D.ER 14:01 → D.EDHOLD 21:09 → OBSVTIME 21:09 → D.EDHOLD 06-18 12:30
PROVIDERS: Emergency Medicine; Family Medicine; Internal Medicine Cardiovascular Disease; ADMIT Family Medicine; ATTEND Family Medicine
DX: I20.0 Unstable angina (principal); I10 Essential (primary) hypertension; J45.909 Unspecified asthma, uncomplicated; K21.9 Gastro-esophageal reflux disease without esophagitis; R07.89 Other chest pain; E78.5 Hyperlipidemia, unspecified; G89.29 Other chronic pain

== ENCOUNTER 2020-06-19 08:26 | Day surgery (SDC) | payer MEDICARE ==
[~2020-06-19] VITALS: Ht 172.7 cm; Wt 76.8 kg
--- NOTE | ~2020-06-19 | HEMODYNAMI ---
PATIENT:MANI CAIN MEDICAL RECORD: [id number] : 52 LOCATION:D.CAT ADMISSION DATE: 06/19/20 Generatedon:06/19/202010:54 Patient name: MANI CAIN Patient #: [id number] SSN: DO B: 1950 Date of study: 06/19/2020 Page: Of Hemodynamic Procedure Report Patient Data Patient Demographics Procedure consent was obtained First Name: MANI Gender: Male Last Name: PAYTON : 1950 Middle Initial: D Age: 69 year(s) Patient #: [id number] Race: Unknown Additional ID: [id number] Contact details Address: [address] [place] [address] State: [place] City: [place] Zip code: [address] Past Medical History Allergies Allergen Reaction Date Comments Reported Other allergy 02/01/2020 LEVAQUIN Other allergy 06/19/2020 LEVAQUIN Admission Admission Data Admission Date: 06/19/2020 Admission Time: 8:26 Arrival Date: 06/19/2020 Arrival Time: 0:00 Height (in.): 67.72 BSA: 1.9 (m2) Height (cm.): 172 BMI: 26.03 (kg/m2) Weight (lbs.): 169.76 Weight (kg.): 77 Lab Results Lab Result Date: 06/19/2020 Lab Result Time: 0:00 Biochemistry Name Units Result Min Max BUN mg/dl 16 --(---*)-- 7 18 Creatinine mg/dl 0.8 --(-*--)-- 0.6 1.3 eGFR ml/min 90 --(*---)-- 90 120 NONAFRICAN CBC Name Units Result Min Max Hematocrit % 45.3 --(-*--)-- 42 54 Hemoglobin g/dl 15.3 --(-*--)-- 13.5 17.5 Procedure Procedure Types Cath Procedure Diagnostic Procedure [facility] w/Coronaries FFR/IVUS FFR Initial Intra-Coronary IVUS Initial Sedation Charges Moderate Sedation 40-54 minutes PCI Procedure Hemochron ACT Test Procedure Description Procedure Date Procedure Date: 06/19/2020 Procedure Start Time: 10:08 Procedure End Time: 10:49 Procedure Staff Name Function Bill Cordova MD Performing Physician Michelle Norwood RT Monitor Sarkia Thompson RT Scrub Fritz Martin RN Nurse Procedure Data Cath Procedure Fluoroscopy Diagnostic fluoroscopy Total fluoroscopy Time: 3.3 time: 3.3 min min Diagnostic fluoroscopy Total fluoroscopy dose: 450 dose: 450 mGy mGy Contrast Material Contrast Material Type Amount (ml) Isovue 300 59 Entry Location Entry Primary Successful Side Size Upsize Upsize Entry Closure Succes sful Closure Location (Fr) 1 (Fr) 2 (Fr) Remarks Device Remarks Femoral Right 5 Fr 6 Fr Exoseal artery Short Estimated blood loss: 10 ml Diagnostic catheters Device Type Used For End Catheter Placement MULTIPACK JL 4.0 5Fr Procedure catheter MULTIPACK 3DRC 5Fr Procedure catheter MULTIPACK Pigtail 5 Fr Procedure catheter Procedure Complications No complications Procedure Medications Medication Administration Route Dosage Oxygen etCO2 Nasal cannula 2 l/min Lidocaine 2% added to field 20 Heparin Flush Bag added to field 2 bags (1000units/500ml NS) 0.9% NaCl I.V. 100 ml/hr Versed I.V. 2 mg Fentanyl I.V. 100 mcg Versed I.V. 1 mg Versed I.V. 1 mg Fentanyl I.V. 50 mcg Fentanyl I.V. 50 mcg Heparin Bolus I.V. 4000 units Versed I.V. 2 mg Hemodynamics Rest BSA: 1.9 (m2) HGB: 15.3 (g/dl) O2 Consumption: Estimated: 233.34 (ml/min) O2 Con sumption indexed: Estimated:122.81 (ml/min/m) Heart Rate: 88 (bpm) Pressure Samples Time Site Value (mmHg) Purpose Heart Use Rate(bpm) 10:15 LV 151/-3,23 Snapshot 87 10:16 AO 148/68(97) Pullback 87 10:16 LV 143/1,32 Pullback 87 Gradients Valve Time Site 1 Site 2 Mean SEP/DFP Peak To Heart Use (mmHg) (sec/min) Peak Rate (mmHg) (bpm) Aortic 10:16 LV AO 0 8 0 87 143/1,32 148/68(97) Calculations Valve P-P Mean Valve Index Valve Source Name Gradient Area Flow (cm2) Aortic 0 0 0 0 Snapshots Pre Cath Intra NCS Post Cath Vital Signs Time Heart Resp SPO2 etCO2 NIBP (mmHg) Rhythm Pain Sedation Rate (ipm) (%) (mmHg) Status Level (bpm) 9:52:27 88 16 99 0 147/77(116) NSR 0 (11) 10(A) , No pain 9:56:39 84 16 98 24 130/77(92) NSR 0 (11) 10(A) , No pain 10:00:44 85 17 98 0 137/79(102) NSR 0 (11) 10(A) , No pain 10:05:02 76 16 98 32.2 128/70(100) NSR 0 (11) 10(A) , No pain 10:09:16 78 12 95 31.5 142/77(130) NSR 0 (11) 9(A) , No pain 10:13:32 86 19 93 2.2 137/83(114) NSR 0 (11) 9(A) , No pain 10:17:44 86 11 95 0 134/79(99) NSR 0 (11) 10(A) , No pain 10:21:58 95 16 98 34.5 136/71(107) NSR 0 (11) 9(A) , No pain 10:26:08 83 14 96 18.7 118/71(96) NSR 0 (11) 10(A) , No pain 10:30:22 80 10 97 19.5 116/60(94) NSR 0 (11) 9(A) , No pain 10:34:32 80 11 97 21.7 113/70(89) NSR 0 (11) 10(A) , No pain 10:38:40 78 12 97 18 122/73(92) NSR 0 (11) 10(A) , No pain 10:42:54 85 12 98 30 127/69(91) NSR 0 (11) 10(A) , No pain 10:47:04 78 6 98 0 115/69(88) NSR 0 (11) 10(A) , No pain Medications Time Medication Route Dose Verified Delivered Reason Notes Effectiveness by by 9:53:28 Oxygen etCO2 2 Bill Buffie used for Nasal l/min Art Martin manager wellness cannula 9:53:37 Lidocaine 2% added 20ml Bill Bill for local to vial Art Cordova MD anesthetic field 9:53:43 Heparin Flush added 2 Bill Bill used for Bag to bags Art Cordova MD procedure (1000units/500ml field NS) 9:53:55 0.9% NaCl I.V. 100 Bill Buffie Per physician ml/hr Art Martin RN 10:02:11 Versed I.V. 2 mg Bill Buffie for sedation Art Martin RN 10:02:16 Fentanyl I.V. 100 Bill Buffie for sedation mcg Art Martin RN 10:06:38 Versed I.V. 1 mg Bill Buffie for sedation Art Martin RN 10:06:45 Fentanyl I.V. 50 Bill Buffie for sedation mcg Art Martin RN 10:14:40 Versed I.V. 1 mg Bill Buffie for sedation Art Martin RN 10:14:46 Fentanyl I.V. 50 Bill Buffie for sedation mcg Art Martin RN 10:25:00 Heparin Bolus I.V. 4000 Bill Buffie for verif ied units Art Martin RN anticoagulation with dr cordova for ifr 10:28:33 Versed I.V. 2 mg Bill Buffie for sedation Art Martin RN Procedure Log Time Note 9:34:13 Informed consent obtained and on chart 9:34:34 Procedure Status Elective Heart Cath (OP). 9:34:34 Time tracking: Regular hours (M-F 7:00 - 5:00) 9:34:37 Plan of Care:Hemodynamics will remain stable., Cardiac rhythm will remain stable., Comfort level will be maintained., Respiratory function will remain adequate., Patient/ family verbilizes understanding of procedure., Procedure tolerated without complication., Recovers from procedure without complications.. 9:35:30 Sarika MEYER(R) (CV) sent for patient. Start room use. 9:42:07 Patient Weight : 169.76 lbs 9:42:16 Patient Height : 67.72 inches 9:42:22 Arrival Date: 06/19/2020 12:00:00 AM 9:43:22 Patient allergic to Other allergyLEVAQUIN 9:44:56 Patient received from Pre/Post Procedure Room to CCL 1 Alert and oriented. Tansferred to table in Supine position. 9:44:58 Correct patient and procedure confirmed by team. 9:44:58 Warm blankets applied, and karlo hugger turned on for patient comfort. 9:51:22 ECG and BP/O2 sat monitors applied to patient. 9:51:24 Vital chart was started 9:51:28 Rhythm: sinus rhythm 9:51:30 Full Disclosure recording started 9:51:31 Baseline sample Acquired. 9:53:28 Oxygen 2 l/min etCO2 Nasal cannula was administered by Fritz Martin RN; used for procedure; Verbal order read back and verified. 9:53:37 Lidocaine 2% 20ml vial added to field was administered by Bill Cordova MD; for local anesthetic; Verbal order read back and verified. 9:53:43 Heparin Flush Bag (1000units/500ml NS) 2 bags added to field was administered by Bill Cordova MD; used for procedure; Verbal order read back and verified. 9:53:55 0.9% NaCl 100 ml/hr I.V. was administered by Fritz Martin RN; Per physician; Verbal order read back and verified. 9:56:30 H&P Date Dictated: 06/18/2020 Within 30 days and on chart., H&P Addendum completed by physician on day of procedure. (MUST COMPLETE FOR ALL OUTPATIENTS). 9:56:32 Pre-procedure instructions explained to patient. 9:56:32 Pre-op teaching completed and patient verbalized understanding. 9:56:35 Family in patients room. 9:56:37 Patient NPO since Midnight. 9:56:40 Is the patient allergic to Iodine/contrast media? No. 9:56:41 Is patient on blood thinner?Yes 9:56:42 ACC The patient was administered the following blood thiners within the last 24 hours: ACCPlavix 9:56:44 Patient diabetic? No. 9:56:47 Previous problem with sedation/anesthesia? No ? 9:56:49 Snore? Yes 9:56:50 Sleep apnea? Yes 9:56:51 Deviated septum? No 9:56:52 Opens mouth fully? Yes 9:56:53 Sticks out tongue? Yes 9:56:54 Airway obstruction? No ? 9:56:56 Dentures? No ? 9:56:58 Pre procedure: right dorsailis pedis pulse 2+ Normal; easily identifiable; not easily obliterated 9:57:07 Patient pain scale 0/10 SHORTNESS OF BREATH. 9:57:13 IV patent on arrival in left antecubital with 0.9% NaCl at KVO. 9:57:18 Right groin area was prepped with chlora-prep and draped in sterile fashion 9:57:19 Alarms reviewed by R. N. 9:57:20 Sharps counted by scrub and verified by R.N. 10::19 --------ALL STOP TIME OUT------ ::19 Final Timeout: patient, procedure, and site verified with staff and physician. All members of the team are in agreement. 10:01:20 Right groin site verified by team. 10:01:22 Fire Safety Assessment: A--An alcohol-based skin anteseptic being used preoperatively., C--Open oxygen or nitrous oxide is being used., D--An ESU, laser, or fiber-optic light is being used. 10:01:25 Physical assessment completed. ASA score P 2 - A patient with mild systemic disease as per Bill Cordova MD. 10:01:28 1) 90+ Normal kidney functon but urine findings or structural abnormalities or genetic trait point to kidney disease. 10:01:30 Maximum allowable contrast dose (3.7 X eGFR X 0.75)250 ml. 10:01:33 Sedation plan: IV Moderate Sedation Medication:Versed, Fentanyl 10:02:11 Versed 2 mg I.V. was administered by Fritz Martin RN; for sedation; Verbal order read back and verified. 10:02:16 Fentanyl 100 mcg I.V. was administered by Fritz Martin RN; for sedation; Verbal order read back and verified. 10:05:00 Zero performed for pressure channel P1 10:06:38 Versed 1 mg I.V. was administered by Fritz Martin RN; for sedation; Verbal order read back and verified. 10:06:45 Fentanyl 50 mcg I.V. was administered by Fritz Martin RN; for sedation; Verbal order read back and verified. 10:07:26 Procedure started. 10:07:29 Use device set Femoral Dx 10:07:31 ACIST Syringe (30414) opened to sterile field. 10:07:31 Bag Decanter (2001S) opened to sterile field. 10:07:32 ACIST Hand Control (18639) opened to sterile field. 10:07:33 ACIST Manifold (65474) opened to sterile field. 10:07:35 Tegaderm 4 x 4 (1626W) opened to sterile field. 10:07:40 Medline Cath Pack ([id number]) opened to sterile field. 10:07:47 DIAGNOSTIC Multipack 5Fr catheter set (TF4562) opened to sterile field. 10:07:49 SHEATH 5FR [place] (COY172) opened to sterile field. 10:07:50 EMERChartITright Guide Wire (644-253) opened to sterile field. 10:08:47 Local anesthetic to right femoral artery with Lidocaine 2% by Bill Cordova MD.INITIAL ACCESS ONLY 10:08:58 A 5 Fr sheath was inserted into the Right Femoral artery 10:09:27 A MULTIPACK JL 4.0 5Fr catheter was advanced over the wire and used for Procedure. 10:11:33 LCA angiography performed. 10:12:38 Catheter exchanged over wire. 10:13:00 A MULTIPACK 3DRC 5Fr catheter was advanced over the wire and used for Procedure. 10:14:40 Versed 1 mg I.V. was administered by Fritz Martin RN; for sedation; Verbal order read back and verified. 10:14:46 Fentanyl 50 mcg I.V. was administered by Fritz Martin RN; for sedation; Verbal order read back and verified. 10:14:46 A MULTIPACK Pigtail 5 Fr catheter was advanced over the wire and used for Procedure. 10:15:29 LV gram done using BLANCAS 10:15:32 Injector settings: Ml/sec: 10, Volume: 20, 10:15:46 LV hemodynamics recorded. 10:15:58 EF : 60 % 10:16:22 Catheter exchanged over wire. 10:19:25 Proceeding to intervention. 10:20:35 SHEATH 6FR [place] (NUH167) opened to sterile field. 10:20:36 INFLATOR Merit BasixCompak (KE2872) opened to sterile field. 10:20:59 TUBING High Pressure Extension Tubing (Art) ([id number]) opened to sterile field. 10:21:44 [place] Verrata Plus pressure wire (80804B) opened to sterile field. 10::54 Sheath upsized to a 6 Fr Short. 10::58 Zero performed for pressure channel P1 10:: Lab Result : BUN 16 mg/dl :: Lab Result : Creatinine 0.8 mg/dl 10:: Lab Result : eGFR NONAFRICAN 90 ml/min 10:: Lab Result : Hemoglobin 15.3 g/dl :: Lab Result : Hematocrit 45.3 % 10:25:00 Heparin Bolus 4000 units I.V. was administered by Fritz Martin RN; for anticoagulation; verified with dr cordova for ifr Verbal order read back and verified. 10:25:03 GUIDE 6FR EBU 3.5 catheter ([id number]) opened to sterile field. 10:25:16 6 Fr EBU 3.5 guide catheter was inserted over the wire 10:27:47 FFR/IFR wire advanced. 10:27:48 Wire advanced across lesion. 10:28:33 Versed 2 mg I.V. was administered by Fritz Martin RN; for sedation; Verbal order read back and verified. 10:28:54 LAD lesion measured at .90 with IFR 10:29:56 Wire removed. 10:30:09 [place] Com[place] IVUS Catheter (12024R) opened to sterile field. 10:32:45 IVUS catheter advanced over wire. 10:36:59 IVUS pass to LAD lesion performed. 10:37:00 IVUS catheter removed over wire. 10:37:02 IVUS measurement 65 %. 10:42:42 Guide catheter removed. 10:42:49 EXOSEAL 6Fr (EX600) opened to sterile field. 10:43:00 Sheath removed intact; hemostasis achieved with Exoseal to the Right Femoral artery. 10:43:28 Procedure ended.(Physican Out) 10:44:06 Fluoroscopy time 03.30 minutes. 10:44:10 Flurop Dose total: 450 10:44:10 Fluoroscopy dose: 450 mGy 10:44:18 Dose Area Product 76756 mGy/cm. 10:44:22 Contrast amount:Isovue 300 59ml. 10:44:24 Maximum allowable dose exceeded? No. 10:44:25 Sharps counted by scrub and verified by R.N. 10:44:28 Post-op/insertion site Right Femoral artery dressed using a 4 x 4 and Tegaderm. 10:44:30 Post-procedure physical assessment completed. ASA score P 2 - A patient with mild systemic disease as per Bill Cordova MD. 10:44:57 Post procedure rhythm: sinus rhythm 10:44:59 Estimated blood loss: 10 ml 10:45:03 Post procedure instruction explained to patient.Patient verbalizes understanding. 10:45:04 Patient needs reinforcement of post procedure teaching. 10:45:32 ACT drawn and resulted at 246 seconds. (normal therapeutic range 180-240 seconds). 10:46:18 Procedure type changed to Cath procedure, Diagnostic procedure, LHC, LHC w/Coronaries, FFR/IVUS, FFR Initial, Intra-Coronary IVUS Initial, Sedation Charges, Moderate Sedation 40-54 minutes, PCI procedure, Hemochron ACT Test 10:47:13 Procedure and supply charges have been captured, reviewed, submitted and are correct. 10:47:16 Procedure Complication : No complications 10:49:34 Vital chart was stopped 10:49:36 [facility] Findings: mild to moderate CAD (<70%) 10:49:46 Operative report dictated upon procedure completion. 10:49:46 See physician's report for complete and final results. 10:49:49 Report given to Pre/Post Procedure Room. 10:49:51 Patient transfered to Pre/Post Procedure Room with Bed. 10:49:53 Procedure ended. 10:49:53 Full Disclosure recording stopped 10:49:57 End room use (Document Last) 10:52:51 End room use (Document Last) 10:53:20 End room use (Document Last) Device Usage Item Name Manufacture Quantity Catalog Hospital Part Current Minima l Lot# / Number Charge Number Stock Stock Serial# Code ACIST Acist 1 45140 885158 788532 914780 20 Syringe Medical (77668) Systems Inc Bag Microtek 1 404175 57996 404759 5 Decanter Medical Inc. () ACIST Hand Acist 1 31450 150602 580396 205220 5 Control Medical (23199) Systems Inc ACIST Acist 1 61015 808664 988772 919512 5 Manifold Medical (97701) Systems Inc Tegaderm 4 3M 1 1626W 643765 587985 277585 5 x 4 (1626W) Medline Medline 1 [id number] 406004 02117 827303 5 Cath Pack ([id number]) DIAGNOSTIC Cardinal 1 ZR2306 129709 41597 405958 30 Multipack Health 5Fr catheter set (EH9319) SHEATH 5FR Terumo 1 VXN357 858038 529242 083807 5 [place] (NME391) EMERALD Cardinal 1 502-455 828046 900133 727005 5 Guide Wire Health (502-455) MULTIPACK Cardinal 1 740475 5 JL 4.0 5Fr Health catheter MULTIPACK Cardinal 1 721720 5 3DRC 5Fr Health catheter MULTIPACK Cardinal 1 987160 5 Pigtail 5 Health Fr catheter SHEATH 6FR Terumo 1 OAS498 635617 707945 394847 40 [place] (VYA885) INFLATOR Merit 1 SY2105 250904 039517 983009 15 Merit Medical BasixCompak (CF1698) TUBING High Merit 1 [id number] 695148 45667 112131 10 Pressure Medical Extension Tubing (Cordova) (BI4235W) Perth Perth 1 69483T 025261 337002067 580823 5 Verrata Plus pressure wire (98978N) GUIDE 6FR Medtronic 1 [id number] 406062 83829 290510 3 EBU 3.5 catheter (RT4OVM85) [place] Perth 1 98921O 897984 233014 966274 8 [place] Eagleye IVUS Catheter (10104X) EXOSEAL 6Fr Cardinal 1 EX600 168361 647614 801329 10 (EX600) Health Signature Audit [place] Stage Time Signature Unsigned Intra-Procedure 06/19/2020 Michelle Norwood 10:52:51 AM RT(R) Intra-Procedure 06/19/2020 Fritz Martin RN 10:53:20 AM Intra-Procedure 06/19/2020 Bill Cordova MD 10:54:03 AM [place] [id number] [facility] [place] [address]
[~2020-06-19 08:26] MED LIST changes: +NITRO-DUR0.1 MG TRANSDERM
[2020-06-19] MEDS ORDERED: ISOSORBIDE MONO30 M1 PO (09:10)
[2020-06-19 09:19] VITALS: BP 167/90; Ht 172.7 cm; Wt 76.8 kg
[2020-06-19 09:44] LABS: BASOPHILS 0.1 % (0-2); EOSINOPHILS 1.2 % (0-7); HEMATOCRIT 45.3 % (42.0-54.0); HEMOGLOBIN 15.3 g/dL (13.5-17.5); IMMATURE GRANULOCYTES 0.2 % (0-5); LYMPHOCYTES 12.3 % (15-50); MCHC 33.8 g/dL (31.0-37.0); MCV 91.7 fL (80.0-100.0); MEAN PLATELET VOLUME 9.9 fL (7.4-10.4); MONOCYTES 14.6 % (2-11); NEUTROPHILS 71.6 % (40-80); PLATELET COUNT 227 10x3/uL (130-400); RBC 4.94 10x6/uL (4.20-6.10); RDW 13.6 % (11.5-14.5)
[2020-06-19 09:45] LABS: WBC 9.5 10x3/uL (4.8-10.8)
[2020-06-19 10:00] LABS: ALT (SGPT) 24 U/L (10-68); CALC OSMOLALITY 272 mosm/kg (275-300); CALCIUM 9.5 mg/dL (8.5-10.1); CARBON DIOXIDE 23.4 mmol/L (21.0-32.0); CHLORIDE - SERUM 100 mmol/L (98-107); CHOL - HDL RATIO 3.9 ratio (2.3-4.9); CHOLESTEROL, TOTAL 202 mg/dL (0-200); CREATININE - SERUM 0.8 mg/dL (0.6-1.3); GLUCOSE 106 mg/dL (74-106); HDL CHOLESTEROL 52 mg/dL (32-96); LDL CHOLESTEROL 130 mg/dL (0-100); LDL-HDL RATIO 2.5 ratio (1.5-3.5); POTASSIUM - SERUM 3.4 mmol/L (3.5-5.1); SODIUM 136 mmol/L (136-145); TRIGLYCERIDE 102 mg/dL (30-200); eGFR NON AFRICAN AMERICAN > 90 mL/min (90-120)
[2020-06-19 10:04] LABS: UREA NITROGEN 16 mg/dL (7-18)
--- NOTE | 2020-06-19 11:01 | NUR ---
PT ARRIVED BY STRETCHER. PLACED ON MONITORS. ASSESSMENT COMPLETED. VSS AT THIS TIME. CALL LIGHT WITHIN REACH. FAMILY AT BEDSIDE. DR. RAMAN ROUNDED PRIOR TO PT COMING OUT AND SPOKE WITH PT'S . HE WILL COME AND SPEAK WITH PT WHEN HE IS MORE AWAKE.
--- NOTE | 2020-06-19 11:16 | NUR ---
RIGHT GROIN DRESSING C/D/I. NO S/S OF HEMATOMA NOTED. CALL LIGHT WITHIN REACH. FAMILY AT BEDSIDE. VSS AT THIS TIME. PT VOIDED 700 CC OF CLEAR YELLOW URINE WITHOUT DIFFICULTY.
--- NOTE | 2020-06-19 11:45 | NUR ---
RIGHT GROIN DRESSING C/D/I. NO S/S OF HEMATOMA NOTED. CALL LIGHT WITHIN REACH. VSS AT THIS TIME. PT STILL IN SUPINE POSITION.
--- NOTE | 2020-06-19 11:55 | NUR ---
DR. RAMAN AT BEDSIDE. SPEAKING WITH PT AND PT'S FAMILY. DISCUSSING PLAN OF CARE.
--- NOTE | 2020-06-19 12:31 | NUR ---
RIGHT GROIN DRESSING C/D/I. NO S/S OF HEMATOMA NOTED. CALL LIGHT WITHIN REACH. VSS AT THIS TIME. PT RESTING COMFORTABLY. FAMILY AT BEDSIDE.
--- NOTE | 2020-06-19 13:00 | NUR ---
RIGHT GROIN DRESSING C/D/I. NO S/S OF HEMATOMA NOTED. CALL LIGHT WITHIN REACH. VSS AT THIS TIME.
--- NOTE | 2020-06-19 14:00 | NUR ---
RIGHT GROIN DRESSING C/D/I. NO S/S OF HEMATOMA NOTED. HEAD OF BED INC TO 30 DEGREES. TOLERATED WELL. VSS. SET UP WITH SANDWICH TRAY AND DRINK AT THIS TIME. FAMILY AT BEDSIDE. PT DENIES ANY NAUSEA/PAIN.
--- NOTE | 2020-06-19 14:35 | NUR ---
PIV D'C'D WITH CATH TIP INTACT. TOLERATED WELL. RIGHT GROIN DRESSING C/D/I. NO S/S OF HEMATOMA NOTED. PT INSTRUCTED TO GET UP AND DRESSED AT THIS TIME. FAMILY AT BEDSIDE TO ASSIST.
--- NOTE | 2020-06-19 14:40 | NUR ---
DISCUSSED DISCHARGE INSTRUCTIONS WITH PT AND PT'S FAMILY. THEY VOICED UNDERSTANDING. YOHANNES THORNTON CAME BY AND GAVE THEM A BOOKLET AND APPT TO SEE DR. CORNELL.
--- NOTE | 2020-06-19 14:41 | NUR ---
PT AMBULATED TO RESTROOM. VOIDED WITHOUT DIFFICULTY. STEADY GAIT NOTED.
--- NOTE | 2020-06-19 14:55 | NUR ---
RIGHT GROIN DRESSING C/D/I. NO S/S OF HEMATOMA NOTED. PT TAKEN OUT TO VEHICLE BY WHEELCHAIR. NO S/S OF DISTRESS NOTED. ALL BELONGINGS AND PAPERWORK IN HAND.
== END 2020-06-19 14:55 | disposition home or self-care (01) ==
LOC: D.CATH 08:26
PROVIDERS: ATTEND Internal Medicine Cardiovascular Disease
DX: I20.0 Unstable angina (principal)

== ENCOUNTER 2021-01-12 08:00 | Outpatient (CLI) | payer MEDICARE ==
[~2021-01-12 08:00] MED LIST changes: +AMIODARONE HCL200 MG PO; +CLARITIN 10 MG10 MG PO; +FLUTICASONE PRO16 GM NASAL; +ISOSORBIDE MONO30 M1 PO; +NICORETTE4 M1 PO; +PERCOCET 10-321 EAC1 PO; +PERCOCET 5-3251 TAB PO
[2021-01-23 07:39] VITALS: BMI 24.4
== END 2021-01-12 08:01 | disposition home or self-care (01) ==
LOC: D.HCCARDIO 08:00
PROVIDERS: ATTEND Internal Medicine Cardiovascular Disease
DX: I25.10 Atherosclerotic heart disease of native coronary artery without angina pectoris (principal)

== ENCOUNTER 2021-01-23 06:59 | Day surgery (SDC) | payer MEDICARE ==
[~2021-01-23] VITALS: Ht 179.1 cm; Wt 78.2 kg
--- NOTE | ~2021-01-23 | HEMODYNAMI ---
PATIENT:MANI CAIN MEDICAL RECORD: [id number] : 52 LOCATION:[facility] ADMISSION DATE: 01/23/21 Generatedon:18:52 Patient name: MANI CAIN Patient #: [id number] SSN: [id number] : 1950 Date of study: 01/23/2021 Page: Of Hemodynamic Procedure Report Patient Data Patient Demographics Procedure consent was obtained First Name: MANI Gender: Male Last Name: PAYTON : 1950 Middle Initial: D Age: 70 year(s) Patient #: [id number] Race: SSN: [id number] Additional ID: [id number] Contact details [address]: [address] [place] [address] State: [place] City: [place] Zip code: [address] Past Medical History Performed procedures and imaging results Date Procedure Procedure Results Comments 01/12/2021 Stress testing Positive->Intermediate with SPECT MPI risk Allergies Allergen Reaction Date Comments Reported Other allergy 02/01/2020 [facility]IN Other allergy 06/19/2020 [facility]IN Other allergy 01/23/2021 [facility] Admission Admission Data Admission Date: 01/23/2021 Admission Time: 6:59 Arrival Date: 01/23/2021 Arrival Time: 0:00 Admit Source: Other Insurance Payor: Medicare [facility] #: [id number] Height (in.): 70 BSA: 1.96 (m2) Height (cm.): 177.8 BMI: 24.68 (kg/m2) Weight (lbs.): 172 Weight (kg.): 78.02 Lab Results Lab Result Date: 01/23/2021 Lab Result Time: 0:00 Biochemistry Name Units Result Min Max BUN mg/dl 18 --(---*)-- 7 18 Creatinine mg/dl 0.8 --(-*--)-- 0.6 1.3 eGFR ml/min 90 --(*---)-- 90 120 NONAFRICAN CBC Name Units Result Min Max Hematocrit % 45.3 --(-*--)-- 42 54 Hemoglobin g/dl 15.2 --(-*--)-- 13.5 17.5 Procedure Procedure Types Cath Procedure Diagnostic Procedure LHC Coronaries w/Grafts Sedation Charges Moderate Sedation 25-39 minutes Procedure Description Procedure Date Procedure Date: 01/23/2021 Procedure Start Time: 8:27 Procedure End Time: 8:51 Procedure Staff Name Function Bill Cordova MD Performing Physician Bib Arreola RN Nurse Fritz Martin RN Nurse Yamel Sanders RT Scrub Zayra Crook RT Monitor Procedure Data Cath Procedure Fluoroscopy Diagnostic fluoroscopy Total fluoroscopy Time: 3.6 time: 3.6 min min Diagnostic fluoroscopy Total fluoroscopy dose: 556 dose: 556 mGy mGy Contrast Material Contrast Material Type Amount (ml) Isovue 370 87 Entry Location Entry Primary Successful Side Size Upsize Upsize Entry Closure Succes sful Closure Location (Fr) 1 (Fr) 2 (Fr) Remarks Device Remarks Femoral Right 5 Fr Exoseal artery Estimated blood loss: 5 ml Diagnostic catheters Device Type Used For End Catheter Placement MULTIPACK JL 4.0 5Fr Procedure catheter DIAGNOSTIC AR MOD 5Fr Procedure Catheter ([id number]) DIAGNOSTIC IM 5Fr Procedure catheter ([id number]) MULTIPACK Pigtail 5 Fr Procedure catheter Procedure Complications No complications Procedure Medications Medication Administration Route Dosage 0.9% NaCl I.V. 100 ml/hr Oxygen etCO2 Nasal cannula 2 l/min Heparin Flush Bag added to field 2 bags (1000units/500ml NS) Lidocaine 2% added to field 20 Versed I.V. 1 mg Fentanyl I.V. 50 mcg Versed I.V. 1 mg Fentanyl I.V. 50 mcg Versed I.V. 1 mg Hemodynamics Rest BSA: 1.96 (m2) HGB: 15.2 (g/dl) O2 Consumption: Estimated: 224.97 (ml/min) O2 Co nsumption indexed: Estimated:114.78 (ml/min/m) Heart Rate: 67 (bpm) Pressure Samples Time Site Value (mmHg) Purpose Heart Use Rate(bpm) 8:42 LV 109/10,10 Snapshot 76 8:42 AO 115/59(84) Pullback 77 8:42 LV 104/9,10 Pullback 77 Gradients Valve Time Site 1 Site 2 Mean SEP/DFP Peak To Heart Use (mmHg) (sec/min) Peak Rate (mmHg) (bpm) Aortic 8:42 LV AO 0 77 104/9,10 115/59(84) Calculations Valve P-P Mean Valve Index Valve Source Name Gradient Area Flow (cm2) Aortic 0 0 Snapshots Pre Cath Intra NCS Post Cath Vital Signs Time Heart Resp SPO2 etCO2 NIBP (mmHg) Rhythm Pain Sedation Rate (ipm) (%) (mmHg) Status Level (bpm) 8:20:11 69 22 98 29.3 133/77(119) NSR 0 (11) 10(A) , No pain 8:24:23 73 10 93 10.5 127/78(104) NSR 0 (11) 10(A) , No pain 8:28:35 71 10 99 10.5 135/71(110) NSR 0 (11) 9(A) , No pain 8:32:49 75 12 100 16.5 154/73(112) NSR 0 (11) 9(A) , No pain 8:37:01 78 12 100 0 129/74(101) NSR 0 (11) 9(A) , No pain 8:41:11 76 10 98 0 119/73(106) NSR 0 (11) 9(A) , No pain 8:45:21 76 10 99 14.3 132/68(101) NSR 0 (11) 9(A) , No pain 8:49:35 73 11 99 18.8 121/71(105) NSR 0 (11) 10(A) , No pain Medications Time Medication Route Dose Verified Delivered Reason Notes Effe ctiveness by by 8:11:07 0.9% NaCl I.V. 100 Bill Bib used for ml/hr Art Arreola bead wire insulator 8:11:16 Oxygen etCO2 2 Bill Bib used for Nasal l/min Art Arreola bead wire insulator cannula 8:11:34 Heparin Flush added 2 Bill Bill used for Bag to bags Art Cordova MD procedure (1000units/500ml field NS) 8:11:44 Lidocaine 2% added 20ml Bill Bill for local to vial Art Cordova MD anesthetic field 8:23:12 Versed I.V. 1 mg Bill Bib for Art Arreola RN sedation 8:23:18 Fentanyl I.V. 50 Bill Bib for mcg Art Arreola RN sedation 8:29:17 Versed I.V. 1 mg Bill Bib for Art Arreola RN sedation 8:29:19 Fentanyl I.V. 50 Bill Bib for mcg Art Arreola RN sedation 8:40:36 Versed I.V. 1 mg Bill Bib for Art Arreola RN sedation Procedure Log Time Note 7:51:44 Informed consent obtained and on chart 7:52:12 Arrival Date: 01/23/2021 12:00:00 AM 7:52:12 Admit Source: Other 7:52:15 Insurance Payor : Medicare 7:52:29 Patient Height : 70 inches 7:52:33 Patient Weight : 172 lbs 7:55:02 ACC Patient presents with Stable Angina CCS Anginal Class 2--Slight limitation of ordinary activity. 7:55:05 Procedure Status Elective Heart Cath (OP). 7:55:06 Time tracking: Regular hours (M-F 7:00 - 5:00) 7:55:11 Plan of Care:Hemodynamics will remain stable., Cardiac rhythm will remain stable., Comfort level will be maintained., Respiratory function will remain adequate., Patient/ family verbilizes understanding of procedure., Procedure tolerated without complication., Recovers from procedure without complications.. 7:55:19 H&P Date Dictated: 01/04/2021 Within 30 days and on chart.. 7:55:29 Lab results pending. 7:55:46 Stress Test: yes; abnormal INFERIORLATERAL 7:55:50 Alarms reviewed by R. N. 7:55:50 Sharps counted by scrub and verified by R.N. 7:56:18 Patient NPO since Midnight. 7:56:31 Patient allergic to Other allergyLEVAQUIN 7:58:31 Fritz Martin RN sent for patient. Start room use. 7:59:14 Lab Result : Hemoglobin 15.2 g/dl 7:59:14 Lab Result : Hematocrit 45.3 % 8:08:54 Patient received from Pre/Post Procedure Room to CCL 1 Alert and oriented. Tansferred to table in Supine position. 8:08:56 Warm blankets applied, and karlo hugger turned on for patient comfort. 8:08:57 Correct patient and procedure confirmed by team. 8:08:58 ECG and BP/O2 sat monitors applied to patient. 8:08:59 Full Disclosure recording started 8:09:00 Pre-procedure instructions explained to patient. 8:09:00 Pre-op teaching completed and patient verbalized understanding. 8:09:02 Family unavailable. 8:09:07 Is the patient allergic to Iodine/contrast media? No. 8:09:08 Was the patient premedicated? Yes 8:09:13 Is patient on blood thinner?No 8:09:17 Patient diabetic? No. 8:09:19 If diabetic: On Metformin? N/A 8:09:20 ----Pre-sedation anethsthesia assessment.---- 8:09:23 Previous problem with sedation/anesthesia? No ? 8:09:25 Snore? Yes 8:09:27 Sleep apnea? Yes 8:09:28 Deviated septum? No 8:09:29 Opens mouth fully? Yes 8:09:30 Sticks out tongue? Yes 8:09:34 Airway obstruction? Yes ASTHMA 8:09:37 Dentures? No ? 8:09:46 Pre procedure: right dorsailis pedis pulse 1+ Palpable, but thready & weak; easily obliterated 8:09:49 Patient pain scale 0/10 ?. 8:09:53 IV patent on arrival in left antecubital with 0.9% NaCl at [facility]. 8:09:57 Right groin area was prepped with chlora-prep and draped in sterile fashion 8:10:00 Use device set Femoral Dx 8:11:07 0.9% NaCl 100 ml/hr I.V. was administered by Bib Arreola RN; used for procedure; Verbal order read back and verified. 8:11:16 Oxygen 2 l/min etCO2 Nasal cannula was administered by Bib Arreola RN; used for procedure; Verbal order read back and verified. 8:11:34 Heparin Flush Bag (1000units/500ml NS) 2 bags added to field was administered by Bill Cordova MD; used for procedure; Verbal order read back and verified. 8:11:44 Lidocaine 2% 20ml vial added to field was administered by Bill Cordova MD; for local anesthetic; Verbal order read back and verified. 8:18:39 ACIST Syringe (92596) opened to sterile field. 8:18:40 Bag Decanter (2001S) opened to sterile field. 8:18:41 Medline Cath Pack ([id number]) opened to sterile field. 8:18:42 ACIST Hand Control (46070) opened to sterile field. 8:18:43 ACIST Manifold (03061) opened to sterile field. 8:18:43 DIAGNOSTIC Multipack 5Fr catheter set ([id number]) opened to sterile field. 8:18:45 SHEATH 5FR [place] (XRV781) opened to sterile field. 8:18:46 EMERALD Guide Wire (502-922) opened to sterile field. 8:18:46 Tegaderm 4 x 4 (1626W) opened to sterile field. 8:19:10 Vital chart was started 8:19:12 Baseline sample Acquired. 8:19:15 Rhythm: sinus rhythm 8:19:42 Lab Result : eGFR NONAFRICAN 90 ml/min 8:19:42 Lab Result : Creatinine 0.8 mg/dl 8:19:42 Lab Result : BUN 18 mg/dl 8:21:14 Lab results completed and on chart. 8:22:42 --------ALL STOP TIME OUT------ 8:22:43 Final Timeout: patient, procedure, and site verified with staff and physician. All members of the team are in agreement. 8:22:44 Right groin site verified by team. 8:22:48 Fire Safety Assessment: A--An alcohol-based skin anteseptic being used preoperatively., C--Open oxygen or nitrous oxide is being used., D--An ESU, laser, or fiber-optic light is being used. 8:22:51 Physical assessment completed. ASA score P 2 - A patient with mild systemic disease as per Bill Cordova MD. 8:22:54 1) 90+ Normal kidney functon but urine findings or structural abnormalities or genetic trait point to kidney disease. 8:22:56 Maximum allowable contrast dose (3.7 X eGFR X 0.75)250 ml. 8:23:00 Sedation plan: IV Moderate Sedation Medication:Versed, Fentanyl 8:23:12 Versed 1 mg I.V. was administered by Bib Arreola RN; for sedation; Verbal order read back and verified. 8:23:18 Fentanyl 50 mcg I.V. was administered by Bib Arreola RN; for sedation; Verbal order read back and verified. 8:27:33 Procedure started. 8:27:40 Local anesthetic to right femoral artery with Lidocaine 2% by Bill Cordova MD.INITIAL ACCESS ONLY 8:29:17 Versed 1 mg I.V. was administered by Bib Arreola RN; for sedation; Verbal order read back and verified. 8:29:19 Fentanyl 50 mcg I.V. was administered by Bib Arreola RN; for sedation; Verbal order read back and verified. 8:30:08 J WIRE INSERTED FOR SHEATH INSERTION. 8:31:12 A 5 Fr sheath was inserted into the Right Femoral artery 8:32:22 A MULTIPACK JL 4.0 5Fr catheter was advanced over the wire and used for Procedure. 8:32:48 LCA angiography performed. 8:32:52 Injector settings: Ml/sec: 3, Volume: 6, 8:35:13 Catheter exchanged over wire. 8:35:42 A DIAGNOSTIC AR MOD 5Fr Catheter ([id number]) was advanced over the wire and used for Procedure. 8:36:38 RCA angiography performed. 8:36:41 Injector settings: Ml/sec: 3, Volume: 6, 8:37:23 SVG to RCA angiography performed. 8:37:23 SVG to Diag angiography performed. 8:38:11 Catheter exchanged over wire. 8:40:12 A DIAGNOSTIC IM 5Fr catheter ([id number]) was advanced over the wire and used for Procedure. 8:40:16 PORTER to LAD angiography performed. 8:40:19 Injector settings: Ml/sec: 3, Volume: 6, 8:40:36 Versed 1 mg I.V. was administered by Bib Arreola RN; for sedation; Verbal order read back and verified. 8:42:05 Catheter exchanged over wire. 8:42:17 A MULTIPACK Pigtail 5 Fr catheter was advanced over the wire and used for Procedure. 8:42:27 LV gram done using BLANCAS 8:42:31 Injector settings: Ml/sec: 5, Volume: 15, 8:42:33 LV hemodynamics recorded. 8:42:37 EF : 50 % 8:43:28 Aortic Root visualized 8:43:34 Injector settings: Ml/sec: 10, Volume: 20, 8:47:37 Catheter removed. 8:47:43 EXOSEAL 5Fr (EX500) opened to sterile field. 8:48:55 Sheath removed intact; hemostasis achieved with Exoseal to the Right Femoral artery. 8:48:57 Procedure ended.(Physican Out) 8:49:40 Fluoroscopy time 03.60 minutes. 8:49:44 Fluoroscopy dose: 556 mGy 8:49:44 Flurop Dose total: 556 8:49:51 Dose Area Product 46649 mGy/cm. 8:50:00 Contrast amount:Isovue 370 87ml. 8:50:03 Maximum allowable dose exceeded? No. 8:50:04 Sharps counted by scrub and verified by R.N. 8:50:08 Post-op/insertion site Right Femoral artery dressed using a 4 x 4 and Tegaderm. 8:50:13 Post right femoral artery:stable, soft, clean and dry 8:50:16 Post procedure: right dorsailis pedis pulse 1+ Palpable, but thready & weak; easily obliterated. 8:50:19 Post-procedure physical assessment completed. ASA score P 2 - A patient with mild systemic disease as per Bill Cordova MD. 8:50:22 Post procedure rhythm: unchanged. 8:50:25 Estimated blood loss: 5 ml 8:50:26 Post procedure instruction explained to patient.Patient verbalizes understanding. 8:50:27 Patient needs reinforcement of post procedure teaching. 8:50:51 Procedure type changed to Cath procedure, Diagnostic procedure, LHC, Coronaries w/Grafts, Sedation Charges, Moderate Sedation 25-39 minutes 8:51:11 Procedure and supply charges have been captured, reviewed, submitted and are correct. 8:51:15 Procedure Complication : No complications 8:51:17 Vital chart was stopped 8:51:18 [facility] Findings: MVD- MD will discuss options w/ pt 8:51:21 Operative report dictated upon procedure completion. 8:51:22 See physician's report for complete and final results. 8:51:23 Report given to Pre/Post Procedure Room. 8:51:25 Patient transfered to Pre/Post Procedure Room with Stretcher. 8:51:27 Procedure ended. 8:51:27 Full Disclosure recording stopped 8:51:35 End room use (Document Last) 8:51:47 End room use (Document Last) 8:52:10 End room use (Document Last) Device Usage Item Name Manufacture Quantity Catalog Hospital Part Current Minimal L ot# / Number Charge Number Stock Stock Serial# Code ACIST Acist 1 74258 200565 079955 [id number] 20 Syringe Medical (07724) Systems Inc Bag Microtek 1 2001S 275323 00143 884707 5 Decanter Medical Inc. () Medline Medline 1 [id number] 212334 65770 229726 5 Cath Pack ([id number]) ACIST Hand Acist 1 70811 618779 908772 452765 5 Control Medical (77664) Systems Inc ACIST Acist 1 60935 017400 579637 965613 5 Manifold Medical (65992) Systems Inc DIAGNOSTIC Cardinal 1 UM9630 443140 20542 179873 30 Multipack Health 5Fr catheter set (ND4182) SHEATH 5FR Terumo 1 [id number] 812269 622342 706360 5 [place] (HHR526) EMERALD Cardinal 1 502-455 519884 377706 128494 5 Guide Wire [facility] (502-455) Tegaderm 4 3M 1 1626W 014922 009553 319363 5 x 4 (1626W) MULTIPACK Cardinal 1 513974 5 JL 4.0 5Fr Health catheter DIAGNOSTIC Cardinal 1 [id number] 369456 195616 647006 15 AR MOD 5Fr Health Catheter (230392Q) DIAGNOSTIC Cardinal 1 [id number] 927973 452914 569629 5 IM 5Fr Health catheter ([id number]) MULTIPACK Cardinal 1 070134 5 Pigtail 5 Health Fr catheter EXOSEAL 5Fr Cardinal 1 EX500 518008 976154 139827 10 (EX500) Health Signature [place] Stage Time Signature Unsigned Intra-Procedure 01/23/2021 Zayra Crook 8:51:47 AM RT(R) Intra-Procedure 01/23/2021 Fritz Martin RN 8:52:10 AM Intra-Procedure 01/23/2021 Bill Cordova MD 8:52:23 AM [facility] [address] [place] [address]
[2021-01-23] MEDS ORDERED: [UNRECOGNIZED DRUG - OTHER] (07:23)
[2021-01-23 07:39] VITALS: BP 162/87; Ht 179.1 cm; Wt 78.2 kg
[2021-01-23 07:50] LABS: BASOPHILS 0.8 % (0-2); EOSINOPHILS 2.6 % (0-7); HEMATOCRIT 45.3 % (42.0-54.0); HEMOGLOBIN 15.2 g/dL (13.5-17.5); LYMPHOCYTES 22.9 % (15-50); MCH 30.8 pg (26.0-34.0); MCHC 33.6 g/dL (31.0-37.0); MCV 91.7 fL (80.0-100.0); MEAN PLATELET VOLUME 8.7 fL (7.4-10.4); MONOCYTES 10.8 % (2-11); NEUTROPHILS 62.9 % (40-80); RBC 4.94 10x6/uL (4.20-6.10); RDW 14.9 % (11.5-14.5); WBC 7.2 10x3/uL (4.8-10.8)
[2021-01-23 07:56] LABS: PLATELET COUNT 227 10x3/uL (130-400)
[2021-01-23 08:11] LABS: ALT (SGPT) 27 U/L (10-68); CALC OSMOLALITY 275 mosm/kg (275-300); CARBON DIOXIDE 21.4 mmol/L (21.0-32.0); CHLORIDE - SERUM 104 mmol/L (98-107); CHOL - HDL RATIO 3.7 ratio (2.3-4.9); CHOLESTEROL, TOTAL 189 mg/dL (0-200); CREATININE - SERUM 0.8 mg/dL (0.6-1.3); GLUCOSE 100 mg/dL (74-106); HDL CHOLESTEROL 51 mg/dL (32-96); LDL CHOLESTEROL 124 mg/dL (0-100); LDL-HDL RATIO 2.4 ratio (1.5-3.5); POTASSIUM - SERUM 3.9 mmol/L (3.5-5.1); SODIUM 137 mmol/L (136-145); TRIGLYCERIDE 72 mg/dL (30-200); UREA NITROGEN 18 mg/dL (7-18); eGFR NON AFRICAN AMERICAN > 90 mL/min (90-120)
--- NOTE | 2021-01-23 08:55 | NUR ---
PT ARRIVES TO ROOM 10 VIA STRETCHER S/P HEART CATH. SEE CASTABLES WORKER. IV INFUSING PER ORDERS, DENIES PAIN OR NEEDS, CALL LIGHT WITH IN REACH. SPOUSE AT BEDSIDE
--- NOTE | 2021-01-23 09:10 | NUR ---
EYES CLOSED AROUSES TO VERBAL, SATS 100% 2LNC, VSS, SR WITH NO ECTOPY, RIGHT GROIN SOFT WITHOUT PALPABLE HEMATOMA, EXTREMITY PINK AND WARM AND PEDAL PULSE PALPABLE, PT DENIES PAIN OR NEEDS, IV INFUSING PER ORDERS, PLAN OR CARE GIVEN TO PT AND SPOUSE AND TIME FRAME TO LAY FLAT BOTH VERBALIZED UNDERSTANDING, CALL LIGHT WITHIN REACH
[2021-01-23] MEDS ORDERED: RANEXA500 MG PO (09:13)
--- NOTE | 2021-01-23 09:25 | NUR ---
RESTING QUIETLY, SEE RN 2ND ASSESMENT, PT HAS NO PAIN OR NEEDS AT THIS TIME, CALL LIGHT WITHIN REACH
--- NOTE | 2021-01-23 09:40 | NUR ---
PT AWAKE AND ALERT, DENIES PAIN OR NEEDS, VSS, SR , RIGHT GROIN SOFT WITHOUT BLEEDING OR OOZING , EXTREMITY WARM AND PEDAL PULSE PALPABLE, CAP REFILL WNL, DENIES PAIN OR NEEDS, SPOUSE AT BEDSIDE, CALL LIGHT WITHIN REACH
--- NOTE | 2021-01-23 10:00 | NUR ---
PT PLACED IN SEMI FOWLERS POSITION , SANDWICH BOX AND COFFE GIVEN, VSS, SR , SATS 98% RA, RIGHT GROIN SOFT WITHOUT OOZING OR BLEEDING NOTED, EXTREMITY PINK AND WARM, PEDAL PULSE PALPABLE, PT DENIES PAIN OR NEEDS, CALL LIGHT WITHIN REACH
--- NOTE | 2021-01-23 10:15 | NUR ---
PT VOIDS 500CC CLEAR YELLOW URINE IN URINAL
--- NOTE | 2021-01-23 10:29 | NUR ---
PT RESTING QUIETLY VISITING WITH SPOUSE AT BEDSIDE, VSS, SR, SATS 98%, RIGHT GROIN SOFT WITHOUT OOZING OR BLEEDING NO PALPABLE HEMATOMA, EXTREMITY PINK AND WARM PEDAL PULSE PALPABLE, DENIES PAIN OR NEEDS, IV INFUSING PER ORDERS, CALL LIGHT WITHIN REACH
--- NOTE | 2021-01-23 11:10 | NUR ---
DR RAMAN TO ROOM TO SPEAK WITH PT AND SPOUSE
--- NOTE | 2021-01-23 11:20 | NUR ---
22G IV REMOVED FROM LEFT HAND CATHETER INTACT DRESSING APPLIED, DISCHARGE INSTRUCTIONS REVIEWED WITH PT AND SPOUSE BOTH VERBALIZED UNDERSTANDING, RIGHT GROIN STABLE WITH NO OOZING OR BLEEDING , NO PALPABLE HEMATOMA, EXTREMITY WARM AND PEDAL PULSE PALPABLE, DENIES PAIN OR NEEDS, PT REQUEST THAT HIS RX BE CALLED INTO [facility].
--- NOTE | 2021-01-23 11:24 | NUR ---
RANEXA 500MG TAKE ONE PILL BY MOUTH TWICE A DAY #60 4RF CALLED TO [facility] [phone]
--- NOTE | 2021-01-23 11:35 | NUR ---
PT DISCHARGED PER ORDERS TAKEN TO [facility] VIA WHEELCHAIR
== END 2021-01-23 11:30 | disposition home or self-care (01) ==
LOC: D.CATH 06:59
PROVIDERS: ATTEND Internal Medicine Cardiovascular Disease
DX: I25.118 Atherosclerotic heart disease of native coronary artery with other forms of angina pectoris (principal); R94.39 Abnormal result of other cardiovascular function study; R07.9 Chest pain, unspecified

== ENCOUNTER → 2021-03-01 09:42 | Outpatient (CLI) | payer MEDICARE ==
[2021-01-23 07:39] VITALS: BMI 24.4
[~2021-03-01 09:42] MED LIST changes: +RANEXA500 MG PO; +[UNRECOGNIZED DRUG - OTHER]
[2021-03-01 10:47] LABS: SARS-CoV-2 ANTIGEN NEGATIVE- SARS-COV-2 (NEGATIVE)
== END | disposition home or self-care (01) ==
LOC: D.LAB 09:42
PROVIDERS: ATTEND Internal Medicine Cardiovascular Disease
DX: Z29.9 Encounter for prophylactic measures, unspecified (principal)